=== PATIENT | male | born 1975 ===

== ENCOUNTER → 2021-03-01 | Outpatient (CLI) | payer BC, OTHER ==
[~2021-03-01] VITALS: Ht 190.5 cm; Wt 93.0 kg
[~2021-03-01] MED LIST: DICYCLOMINE HCL20 MG PO; LORAZEPAM 0.50.5 MG PO; NEURONTIN 300M300 M2 PO; NORCO7.5 PO; SERTRALINE HCL25 M1 PO
[2021-03-01 10:34] VITALS: BP 136/96
--- NOTE | 2021-03-01 10:48 | NUR ---
Pain Clinic Assessment: 1. History of Osteoarthritis: Not Applicable History of Rheumatoid Arthritis: Not Applicable 2. Height: 6 ft. 3 in. 190.5 cm. Weight: 205.0 lb. oz. 92.988 kg. Patient's BMI: 25.6 3. Vital Signs: BP: 136/96 Pulse: 70 Resp: 16 Temp: 02 Sat: 100 ECG Mon: 4. Pain Intensity: 7 5. Fall Risk: Dizziness: N Needs help standing or walking: N Fallen in the last 3 months: N Fall risk comments: 6. Patient on Blood Thinner: None 7. History of Hypertension: N 8. Opioid Therapy greater than 6 weeks: N Opiate Contract Signed: 9. Risk Assessment Tool Provided: low-0 10. Functional Assessment Tool: / 11. Recreational Drug Use: Never Drug Type: Tobacco Use: Former Smoker Tobacco Type: Amount or Packs/day: How Many Years: Alcohol Use: Yes Frequency: Daily Quant: 4
--- NOTE | 2021-03-14 07:49 | HPC ---
[facility] [place] [address] PAIN MANAGEMENT CONSULTATION Name: NEEMA GERARD Room #: REG SUZIE VanegasKatiuska#: [id number] Admission: 03/01/21 Attend Phys: Kirill Kebede DO Discharge: Date of : 73 Report #: [id number] THIS REPORT FOR: cc: Kirill Jung James A. DO Johnson, James E. DO ~ DOC #: [id number] cc: DO Kirill Barr DO DATE OF SERVICE: 03/01/2021 DATE OF SERVICE: 03/01/2020 REFERRING PHYSICIAN: Dr. Kirill Jung. CHIEF COMPLAINT: Low back pain, left lower extremity pain with paresthesias. HISTORY OF PRESENT ILLNESS: As you know, the patient is a very pleasant 45-year-old male who reports a 1-year history of increasing low back pain, left lower extremity pain, and paresthesias. The patient states he has numbness throughout the entire leg. He goes to the [facility] twice a week and has had six full sessions to date with minimal improvement. He takes [id number] medications. He has trialed traction in the past, which provided some improvement. He has had surgery with Dr. Moody in 2014, which resolved his symptoms entirely, but unfortunately his pain recurred without inciting injury or trauma. He sought evaluation through his primary care physician, Dr. Jung where the patient was evaluated and sent for imaging studies, the findings of the imaging were such the patient was referred to our clinic. The patient indicates his pain is periodic. He describes this pain as shooting numbness and tingling. Places current pain score 2/10, daily average is 7/10, worst pain has been is 8/10. The patient states the pain is exacerbated with standing, improves with stretching. He has been referred to our service to discuss interventional treatment options to address suspected lumbar radiculopathy. PAST MEDICAL HISTORY: 1. Anxiety. 2. Depression. PAST SURGICAL HISTORY: Lumbar laminectomy. SOCIAL HISTORY: The patient denies tobacco, IV or illicit drug use. Admits to 4 alcoholic beverages per day. He is in retail management. He is working, not receiving workmen's compensation nor is he trying to obtain disability benefits. He is not in litigation in regards to the pain. He is unaccompanied at [facility] [address] [place] [address] PAIN MANAGEMENT CONSULTATION Name: NEEMA GERARD Room #: REG CLTrey VanegasKatiuska#: [id number] Admission: 03/01/21 Attend Phys: Kirill Kebede DO Discharge: Date of : 73 Report #: [id number] visit. REVIEW OF SYSTEMS: Positive only for low back pain, left lower extremity pain with paresthesias, numbness and tingling, anxiety and depression. All other review of systems negative per 12-point review of systems other than those listed in history of present illness. Pain impact score 34/70. Moderate interference of daily activities secondary to pain. ALLERGIES: No reported drug allergies. CURRENT MEDICATIONS: Dicyclomine 20 mg once a day, lorazepam 0.5 mg p.r.n., [place] 7.5/325 one tab 8 hours p.r.n. for pain, sertraline 25 mg per day. IMAGING: MRI lumbar spine obtained on 02/03/2021 shows L1-L2 unremarkable. L2-L3 shows minimal annular disk bulge, no evidence of disk herniation or central canal stenosis. There is no evidence of foraminal stenosis. L3-L4 shows minimal annular disk bulge, no evidence of disk herniation, mild central canal stenosis, bilateral neural foraminal narrowing is noted. L4-L5, mild disk bulge, endplate changes, probable surgical changes, left laminotomy. There is mild central canal stenosis, minimal left foraminal disk bulging. There is no evidence of left foraminal L4 nerve root impingement. Right foraminal disk bulge and endplate osteophyte formation is resulting in moderate narrowing of the inferior portion of the right neural foramen. L5-S1 shows probable surgical changes of the left hemilaminectomy, left lateral recess stenosis is noted. Disk osteophyte complex approaching the ventral surface of the descending S1 nerve root. No significant central canal stenosis. There is some foraminal stenosis. PHYSICAL EXAMINATION: VITAL SIGNS: Blood pressure 136/96, pulse is 70, respiratory rate 16 and unlabored. The patient is 100% on room air, height 6 feet 3 inches tall, weight 205 pounds, BMI calculated at 25.6. GENERAL: Well-developed, well-nourished, well-hydrated, 45-year-old male, appearing his stated age. He is placing his current pain score at 7/10. HEENT: Normocephalic, atraumatic. Pupils are equal, round, and responsive. The patient is wearing a mask in compliance to COVID-19 regulations. LUNGS: Appear clear. No wheezing, rhonchi, or rales. CARDIOVASCULAR: Regular. No appreciable gallop, no rub. ABDOMEN: Soft, nontender, nondistended. EXTREMITIES: Show no clubbing, no cyanosis, no edema. MUSCULOSKELETAL: Lower extremity strength equal and symmetrical 5/5, intact to light touch from L1 through S2 dermatomes. Seated straight leg raising negative. Supine straight leg raising mildly positive on the left. Deann's test is negative. Modified Gaenslen's is positive for axial low back pain. [facility] [address] [place] [address] PAIN MANAGEMENT CONSULTATION Name: NEEMA GERARD Room #: [facility].#: [id number] Admission: 03/01/21 Attend Phys: Kirill Kebede DO Discharge: Date of : 73 Report #: [id number] Ankle clonus negative. Babinski is negative. ASSESSMENT: 1. Symptomatic lumbar radiculopathy. 2. Displacement of lumbar intervertebral disk with radiculopathy. 3. 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 4. Failed lumbar spine surgery. 5. Chronic intractable pain. PLAN: Based on today's physical exam and history, the patient has provided the description the patient uses in regards to pain, likely source of the patient's symptoms is a lumbar radiculopathy. The patient has been sent to our clinic by his primary care physician as he has failed conservative treatment options to address suspected lumbar radiculopathy. It does appear the patient is suffering from lumbar radicular symptoms involving the left lower extremity given the distribution of pain and the findings at the L4-L5 and L5-S1 level. It does appear that he has some lateral recess stenosis, which is the likely source. We discussed the treatment options with the patient today. The following was discussed: 1. We discussed physical therapy, stretching exercises, and traction techniques as a treatment option. This along with inversion may be quite beneficial. We discussed medication management utilizing neuropathic pain medications to address neuropathy symptoms. These would include amitriptyline, nortriptyline, Cymbalta, Lyrica, or gabapentin. We discussed lumbar epidural injections under fluoroscopic guidance, spinal cord stimulator therapy, and ultimately surgical decompression of the area. After reviewing the risks and benefits of all proposed treatment options, the patient chose to begin with medication management and to begin the application process to undergo a lumbar epidural injection. 2. The patient will begin gabapentin starting 1 tab p.o. at bedtime and titrate as directed. He was given 300 mg tablets to escalate each 3 nights starting with 1 tablet in 3 nights if no improvement in symptoms, no side effects, then 2 tabs p.o. at bedtime; if no improvement in symptoms, no side effects, then 3 tabs p.o. at bedtime. He will continue the titration until reaching 3 tabs in the morning and 3 tabs at night will be the goal. He was given 270 tablets. He was advised to watch for side effects of sleepiness, disorientation, confusion, and mental slowing with the use of the medication. If he notes he has side effects, contact our clinic after reducing the dose to the dosing prior to the side effect development. 3. We will begin the authorization process for the patient to undergo lumbar epidural injection. I am hopeful that we can have this authorization completed quite quickly and we have the patient return to undergo the first in a series of requested lumbar epidural injections. We will begin that process immediately. Once it has been completed, we will contact the patient to come back to our clinic to under the first in a series of injections. Given that the patient has [facility] [address] [place] [address] PAIN MANAGEMENT CONSULTATION Name: NEEMA GERARD Room #: REG SUZIE Tim#: [id number] Admission: 03/01/21 Attend Phys: Kirill Kebede DO Discharge: Date of : 73 Report #: [id number] had surgery at the L4-L5 and L5-S1 level, a caudal epidural injection would be recommended. 4. We plan to see the patient back for a followup visit once we have achieved authorization for the patient to undergo injection. We are hopeful that authorization will be provided quite quickly and we can have the patient undergo the procedure. We will keep you apprised of his response to treatment. 5. We wish to thank Dr. Jung for the referral of this patient to our clinic. We will keep you apprised of his response to treatment as we address lumbar radicular symptoms and the left lower extremity pain and paresthesias. Again, we wish to thank you for the opportunity to see this patient in consultation. Kirill Kebede DO JEJ/DHI <ELECTRONICALLY SIGNED> By: Kirill Kebede DO 03/14/21 [id number] Kirill Kebede DO /nt
== END ==
LOC: PAIN 02-22 10:26
PROVIDERS: ATTEND Anesthesiology Pain Medicine
DX: M51.16 Intervertebral disc disorders with radiculopathy, lumbar region (principal); G89.29 Other chronic pain; M96.1 Postlaminectomy syndrome, not elsewhere classified; M47.816 Spondylosis without myelopathy or radiculopathy, lumbar region; M79.605 Pain in left leg; R20.2 Paresthesia of skin